=== PATIENT | male | born 1940 | race Caucasian/White ===

== ENCOUNTER 2019-07-10 17:36 | Emergency (ER) | payer OTHER, MEDICARE ==
[2019-07-10 17:54] VITALS: TEMP 97.7; BMI 24.2
--- NOTE | 2019-07-10 18:16 | PDOC ---
History of Present Illness - General Chief Complaint: Injury Stated Complaint: FALL Time Seen by Provider: 07/10/19 18:15 History Source: Patient Exam Limitations: Dementia - History of Present Illness Initial Comments: Thomas Field Jr is a 79 yo M w a sig pmh of previously treated lung cancer and left eye blindness, severe dementia, non-verbal who presents to the [facility] er from [address] [place] [address] via EMS after he fell down and hit the back of his head and now has a laceration on the back of his head. The fall was unwitnessed and there is no indication how long the patient was on the ground for. The patient is non-verbal and cannot contribute any history. There is a small 3 cm laceration on the back of his head with a small hematoma. Per the [place] records the patient is not on any current blood thinners. There is no extra hx from the [place] regarding prior fevers, chest pain, or other additional hx. Advanced directives: DNR PCP: Lilian Hall PSH: Lung cancer treatment, left eye surgery. Allergies: Benzos and haloperidol per chart Social Hx: [place] resident, no substance abuse. Past History - Past Medical History Allergies/Adverse Reactions: Allergies Allergy/AdvReac Type Severity Reaction Status Date / Time Benzodiazepines Allergy Verified 07/10/19 19:02 haloperidol Allergy Verified 07/10/19 19:02 Home Medications: Ambulatory Orders Acetaminophen [Mapap] 500 mg PO BID 03/28/18 Cholecalciferol (Vitamin D3) [Vitamin D3 -] 1,000 unit PO DAILY 03/28/18 Cyanocobalamin (Vitamin B-12) [Vitamin B-12] 1,000 mcg PO DAILY 03/28/18 Ferrous Sulfate 325 mg PO BID 03/28/18 Insulin (Levemir) [Levemir Vial] 0 units SQ BID 03/28/18 Insulin Lispro [Humalog] 100 unit SQ BID 03/28/18 Metoprolol Tartrate 100 mg PO BID 03/28/18 Nifedipine ER [Procardia XL -] 60 mg PO DAILY 03/28/18 Pantoprazole Sodium 40 mg PO DAILY 03/28/18 Pen Needle, Diabetic, Safety [Novofine Autocover] 1 g SQ DAILY 03/28/18 Sennosides/Docusate Sodium [Senexon-S Tablet] 1 each PO HS 08/08/18 Simvastatin 40 mg PO HS 03/28/18 Brimonidine Tartrate [Alphagan 0.2% -] 1 drop OD DAILY drops 04/03/18 Cariprazine HCl [Vraylar] 6 mg PO HS 30 Days #30 capsule 04/03/18 Dorzolamide HCl [Trusopt 2% -] 1 drop OD DAILY drops 04/03/18 Anemia: No Asthma: No Cancer: Yes (Lung cancer) COPD: No Dementia: Yes Diabetes: Yes - Surgical History Lung Surgery: Yes (lobectomy) Neurologic Surgery: Yes - Psycho Social/Smoking Cessation Hx Smoking History: Never smoked Have you smoked in the past 12 months: No Hx Alcohol Use: No Drug/Substance Use Hx: No Substance Use Type: None Review of Systems - Review of Systems Able to Perform ROS?: No (non-verbal) *Physical Exam - Vital Signs Last Vital Signs Temp Pulse Resp BP Pulse Ox 97.7 F 63 18 117/66 99 07/10/19 17:49 07/10/19 17:49 07/10/19 17:49 07/10/19 17:49 07/10/19 17:49 - Physical Exam General Appearance: Yes: Appropriately Dressed, Other (Non-verbal). No: Apparent Distress HEENT: positive: SIVA (right eye only. Left eye does not react but is 2 mm. ). negative: Normal Voice, Scleral Icterus (R), Scleral Icterus (L), Rhinorrhea Neck: positive: Trachea midline, Rigid, Decreased range of motion. negative: Tender, Supple, Tender lateral, Tender midline Respiratory/Chest: positive: Lungs Clear Cardiovascular: positive: Regular Rhythm, Regular Rate Vascular Pulses: Dorsalis-Pedis (R): 2+, Doralis-Pedis (L): 2+ Gastrointestinal/Abdominal: positive: Soft. negative: Distended, Guarding, Rebound Male Genitalia: positive: normal genitalia. negative: discharge Rectal Exam: positive: normal exam, normal rectal tone, other (Stool is green). negative: deferred, decreased tone, hemorrhoids Lymphatic: negative: Adenopathy Musculoskeletal: positive: Normal Inspection, Decreased Range of Motion, Other ( cogwheel rigidity). negative: Vertebral Tenderness Extremity: positive: Normal Capillary Refill, Normal Inspection, Pelvis Stable, Other (spasticity). negative: Normal Range of Motion, Delayed Capillary Refill , Pedal Edema, Swelling, Erythema, Inflammation Integumentary: positive: Normal Color, Dry, Warm, Rash (stage 1 sacral ulcer). negative: Pale, Ecchymosis Neurologic: positive: Other (spasticity). negative: Fully Oriented, Alert, Normal Mood/Affect, Normal Response, Motor Strength 5/5, Responsive, Facial Droop Procedures - Laceration/Wound Repair Head Wound Length: 2.6 to 5.0 cm Wound Explored: clean Wound's Depth, Shape: superficial Irrigated w/ Saline: Yes Betadine Prep: Yes Wound Repaired With: Enid (4 enid) Sterile Dressing Applied: Yes ED Treatment Course - LABORATORY CBC & Chemistry Diagram: 07/10/19 19:00 07/10/19 19:00 Medical Decision Making - Medical Decision Making Thomas Field Jr is a 79 yo M w a sig pmh of previously treated lung cancer and left eye blindness, severe dementia, non-verbal who presents to the [facility] er from [address] [place] [address] via EMS after he fell down and hit the back of his head and now has a laceration on the back of his head. The fall was unwitnessed and there is no indication how long the patient was on the ground for. The patient is non-verbal and cannot contribute any history. There is a small 3 cm laceration on the back of his head with a small hematoma. Per the [place] records the patient is not on any current blood thinners. There is no extra hx from the [place] regarding prior fevers, chest pain, or other additional hx. Advanced directives: DNR Vital Signs Temp Pulse Resp BP Pulse Ox 97.7 F 63 18 117/66 99 07/10/19 17:49 07/10/19 17:49 07/10/19 17:49 07/10/19 17:49 07/10/19 17:49 - Rectal temp 98.2 DDx IBNLT: ACS/NM, arrhythmia, electrolyte/metabolic disturbance, PNA, pelvic fx , brain bleed, cervical fx, infection, anemia, rhabdo Plan: Head/neck CT, tetanus update, cbc, cmp, cardiac prof, EKG, CXR, pelvic xr , Laceration repair, re-assess. EKG: LBBB, LAD, no ST elevations or depressions. EKG grossly unchanged since 2007. Head CT: Hydrocephalus, FRUIT LOADER shunt, no acute pathology. Cervical CT: No acute fracture Labs: Mildly elevated BUN - Will hydrate CXR: No acute pathology Pelvic XR: no acute pathology Laceration: Fixed with 4 enid - Return in 5 to 7 days for removal Disposition: Back to [facility] - Discharge Information Problems reviewed: Yes Clinical Impression/Diagnosis: Laceration of head Qualifiers: Encounter type: initial encounter Location of open wound of head: scalp Foreign body presence: without foreign body Qualified Code(s): S01.01XA - Laceration without foreign body of scalp, initial encounter Head injury Qualifiers: Encounter type: initial encounter Qualified Code(s): S09.90XA - Unspecified injury of head, initial encounter Condition: Stable Disposition: HOME - Admission No - Follow up/Referral Referrals: Lilian Hall MD [Staff Physician] - - Patient Discharge Instructions Patient Printed Discharge Instructions: DI for Laceration Repair -- En[place] Additional Instructions: Patient presented with a laceration on his head. 4 enid were placed to fix laceration. Please return to the emergency room in 5 to 7 days to have the enid taken out. Come back to the ER immediately if the patient starts vomiting, has nausea or any other new or worsening concerns. Print Language: LAO - Post Discharge Activity
[2019-07-10] MEDS ORDERED: DIPHTH,PERTUSS(ACELL),TET 0.5 ML DISP.SYRIN IM ONE ×2 (18:34→19:52)
[2019-07-10] MEDS ORDERED: ACETAMINOPHEN 1000 MG/100 ML VIAL (NON FORMULARY) IVPB ONE (18:34)
[2019-07-10 19:12] LABS: BASO % 1.5 % (0-2.0); EOS % 3.2 % (0-4.5); HEMATOCRIT 40.9 % (35.4-49); HEMOGLOBIN 13.4 GM/dL (11.7-16.9); LYMPH % 31.4 % (8-40); MCH 27.8 pg (25.7-33.7); MCHC 32.7 g/dl (32.0-35.9); MEAN CELL VOLUME 84.9 fl (80-96); MEAN PLT VOLUME 7.4 fl (7.5-11.1); MONO % 13.4 % (3.8-10.2); NEUT % 50.5 % (42.8-82.8); PLATELET COUNT 141 K/MM3 (134-434); RBC 4.82 M/mm3 (4.00-5.60); RDW 13.8 % (11.9-15.9); WHITE BLOOD COUNT 5.7 K/mm3 (4.0-10.0)
[2019-07-10 19:37] LABS: ALBUMIN 3.4 g/dl (3.4-5.0); BILIRUBIN,TOTAL 0.3 mg/dL (0.2-1); BLOOD UREA NITROGEN 18.2 mg/dL (7-18); CALCIUM 8.5 mg/dL (8.5-10.1); CREATININE 0.8 mg/dL (0.55-1.3); POTASSIUM 3.9 mmol/L (3.5-5.1); TOT PROT 6.3 g/dl (6.4-8.2)
[2019-07-10] MEDS ORDERED: SODIUM CHLORIDE 0.9% 500 ML INFUS.BAG IV ONE (19:50)
[2019-07-10] MEDS ORDERED: ACETAMINOPHEN INJECTION 100 ML IVPB ONE (19:50)
--- NOTE | 2019-07-10 20:02 | PDOC ---
Attending Attestation - Resident Resident Name: Jaiden Jett - ED Attending Attestation I have performed the following: I have examined & evaluated the patient, The case was reviewed & discussed with the resident, I agree w/resident's findings & plan - HPI HPI: 07/10/19 22:26 see resident hpi - Physicial Exam PE: 07/10/19 22:26 agree with resident exam - Medical Decision Making 07/10/19 22:26 79-year-old male found [facility] at his [facility] facility, nonambulatory CT scans of the head cervical spine and x-rays of the chest and pelvis show no traumatic injuries Patient awake and alert Plan for DC back to facility
[2019-07-11 00:24] VITALS: BP 123/71; PULSE 65
--- NOTE | 2019-07-11 12:39 | EKG ---
Test Reason : Blood Pressure : / mmHG Vent. Rate : 057 BPM Atrial Rate : 057 BPM P-R Int : 170 ms QRS Dur : 140 ms QT Int : 508 ms P-R-T Axes : 050 -39 081 degrees QTc Int : 494 ms POOR DATA QUALITY, INTERPRETATION MAY BE ADVERSELY AFFECTED SINUS BRADYCARDIA WITH PREMATURE ATRIAL COMPLEXES LEFT AXIS DEVIATION LEFT BUNDLE BRANCH BLOCK ABNORMAL ECG WHEN COMPARED WITH ECG OF 29-MAR-2018 11:57, VENT. RATE HAS DECREASED BY 37 BPM Confirmed by PAGE JUARES MD ([id number]) on 07/11/2019 12:39:03 PM Referred By: Confirmed By:PAGE JUARES MD
== END 2019-07-11 00:15 | disposition home or self-care (01) ==
LOC: JER 17:36
PROC: 0HQ0XZZ Repair Scalp Skin, External Approach (ICD-10-PCS; principal; 2019-07-10)
PROC: 3E033NZ Introduction of Analgesics, Hypnotics, Sedatives into Peripheral Vein, Percutaneous Approach (ICD-10-PCS; 2019-07-10)
PROC: 3E0337Z Introduction of Electrolytic and Water Balance Substance into Peripheral Vein, Percutaneous Approach (ICD-10-PCS; 2019-07-10)
PROC: 3E0234Z Introduction of Serum, Toxoid and Vaccine into Muscle, Percutaneous Approach (ICD-10-PCS; 2019-07-10)
DX: S01.01XA Laceration without foreign body of scalp, initial encounter (principal); S09.90XA Unspecified injury of head, initial encounter; W18.39XA Other fall on same level, initial encounter; Y93.89 Activity, other specified; Y92.099 Unspecified place in other non-institutional residence as the place of occurrence of the external cause; Z85.118 Personal history of other malignant neoplasm of bronchus and lung; H54.7 Unspecified visual loss; F03.90 Unspecified dementia, unspecified severity, without behavioral disturbance, psychotic disturbance, mood disturbance, and anxiety; Z88.8 Allergy status to other drugs, medicaments and biological substances; E11.9 Type 2 diabetes mellitus without complications
CPT/HCPCS: 36415; 70450-TC; 71045-TC-FY; 72125-TC; 72170-TC-FY; 80053; 82550; 84484; 85025; 90715; 93005; 93010; 99283-25; J0131